=== PATIENT | female | born 1950 | race American Indian/Alaskan Native ===

== ENCOUNTER 2017-12-17 07:02 | Day surgery (SDC) | payer MEDICARE, BC ==
[2017-12-09 10:33] VITALS: BMI 44.6
[2017-12-17 08:05] VITALS: TEMP 98.3; O2SAT 99
[2017-12-17] MEDS ORDERED: Propofol 10 mg/ml Inj (20 ML) ONE (08:52)
[2017-12-17] MEDS ORDERED: Naloxone 0.4 mg/ml Inj (Adult) ONE (09:23)
[2017-12-17] MEDS ORDERED: Lactated Ringer's 1,000 ML IV SCH (09:45)
[2017-12-17 11:17] VITALS: BP 1349/73; PULSE 69; RESP 14
== END 2017-12-17 11:26 | disposition home or self-care (01) ==
LOC: ENDO 07:02
PROVIDERS: ATTEND Internal Medicine Gastroenterology
DX: K29.50 Unspecified chronic gastritis without bleeding (principal); K31.84 Gastroparesis; K21.9 Gastro-esophageal reflux disease without esophagitis; I10 Essential (primary) hypertension; E11.9 Type 2 diabetes mellitus without complications; Z79.4 Long term (current) use of insulin
CPT/HCPCS: 43239; 82948; 88305; 88312; 88342; J2001; J2310; J2704; J3010; J7040; J7120

== ENCOUNTER 2019-03-12 10:13 | Outpatient (CLI) | payer MEDICARE, BC | END 2019-03-12 10:14 | disposition home or self-care (01) | LOC: RAD 10:13 ==